=== PATIENT | male | born 1955 | race Two or more races ===

== ENCOUNTER 2017-03-22 02:33 | Emergency (ER) | payer BC, OTHER ==
[~2017-03-22] VITALS: Ht 170.2 cm; Wt 65.3 kg
--- NOTE | 2017-03-22 02:51 | NUR ---
PT CMAE FROM HOME C/O L FLANK PAIN X 2 WEEKS, STARTED THROWING UP TONIGHT, NO BLOOD NOTED, A/O X 4, BREATHING EVEN/UNLABOTEDM ABD, SOFT/NON DISTENDED, TENDER TO TOUCH, RATES PAIN 8/10 RADIATING TO BACK.
[2017-03-22] MEDS ORDERED: IV NS 0.9% 1,000 ML BAG IV ONE (03:00)
[2017-03-22] MEDS ORDERED: HYDROCODONE/APAP 10/325MG 1 EA TABLET PO ONE (04:00)
[2017-03-22 04:05] LABS: APPEARANCE,URINE CLEAR (CLEAR); BILIRUBIN,URINE NEGATIVE (NEGATIVE); BLOOD, URINE 3+ Ery/uL (NEGATIVE); COLOR,URINE YELLOW (YELLOW); KETONES,URINE NEGATIVE (NEGATIVE); LEUKOCYTE ESTERASE ,URINE NEGATIVE (NEGATIVE); NITRITE, URINE NEGATIVE (NEGATIVE); PROTEIN,URINE NEGATIVE (NEGATIVE); UGLUCOSE NEGATIVE (NEGATIVE); UROBILINOGEN,URINE 0.2 EU/dL (0.2)
[2017-03-22 04:16] LABS: BACTERIA,URINE None seen /HPF (None Seen); SQUAMOUS EPITHELIAL CELL,UR Rare /HPF (None Seen); WBC,URINE 0-2 /HPF (0-3)
[2017-03-22] MEDS ORDERED: ONDANSETRON HCL/PF - ER 4 MG/2 ML VIAL IV ONE (05:30)
[2017-03-22] MEDS ORDERED: HYDROMORPHONE 1 MG/1 ML DISP.SYRIN IV ONE (05:30)
[2017-03-22] MEDS ORDERED: ONDANSETRON HCL/PF 4 MG/2 ML VIAL ONE (05:51)
[2017-03-22] MEDS ORDERED: HYDROMORPHONE 1 MG/1 ML DISP.SYRIN ONE (05:52)
[2017-03-22] MEDS ORDERED: KETOROLAC TROMETHAMINE INJ 30 MG/ML VIAL IV ONE (06:00)
[2017-03-22 07:25] LABS: BASOPHILS % (AUTO) 0.3 % (0.0-2.0); EOSINOPHILS % (AUTO) 0.4 % (0.0-6.0); HEMATOCRIT 48 % (39-51); HEMOGLOBIN 16.7 g/dL (13.5-17.5); LYMPHOCYTES % (AUTO) 9.1 % (20.0-44.0); MEAN CORPUSCULAR HEMOGLOBIN 30 PG (26.0-33.0); MEAN CORPUSCULAR HGB CONC 35 g/dl (31.0-36.0); MEAN CORPUSCULAR VOLUME 87 fL (80-96); MONOCYTES # (AUTO) 0.6 /CMM (0.1-1.30); NEUTROPHILS # (AUTO) 9.5 /CMM (1.8-8.9); NEUTROPHILS % (AUTO) 85.2 % (43.0-81.0); PLATELET COUNT (AUTO) 118 /CMM (150-450); RDW COEFFICIENT OF VARIATION 12.4 (11.5-15.0); RED BLOOD CELL COUNT(AUTO) 5.53 MIL/uL (4.5-6.0); WHITE BLOOD COUNT (AUTO) 11.2 K/uL (4.3-11.0)
[2017-03-22 07:37] LABS: CALCIUM, SERUM 9.3 mg/dL (8.5-10.1); CREATININE 0.9 mg/dL (0.6-1.3); POTASSIUM 4.8 mmol/L (3.5-5.1)
[2017-03-22 07:43] LABS: ALBUMIN 4.2 g/dL (3.4-5.0); BILIRUBIN,TOTAL 0.8 mg/dL (0.2-1.0); TOTAL PROTEIN, SERUM 8.3 g/dL (6.4-8.2)
--- NOTE | 2017-03-22 09:13 | NUR ---
CALLED HCP AND SPOKE WITH TYLER, [employer] MACHINE SETTER AND FAXED THE FACESHEET TO .
--- NOTE | 2017-03-22 09:25 | NUR ---
HCP PHYSICIAN IS TALKING TO DR WHITE. ACCEPTED THE PATIENT. WAITING FOR TRANSFER INFO.
--- NOTE | 2017-03-22 12:44 | NUR ---
CALLED HCP AT [phone], SPOKE WITH MC, SHE SAID SHE IS WAITING FOR A BED AT [facility] AND SHE WILL CALL ME BACK WHEN SHE HAS A BED.
--- NOTE | 2017-03-22 14:09 | NUR ---
CALLED HCP, SPOKE WITH JACK, SHE SAID [facility] IS NOT AVAILABLE BUT SHE WILL HAVE HER CALL ME BACK
--- NOTE | 2017-03-22 14:44 | NUR ---
RECEIVED CALL FROM MC AT [facility], SHE SAID THEY ARE JUST WAITING FOR AN ACCEPTING UROLOGIST AT [facility].
--- NOTE | 2017-03-22 14:52 | NUR ---
CALLED FOR FOOD TRAY
--- NOTE | 2017-03-22 15:15 | NUR ---
DR WHIET AT BEDSIDE TALKING TO PT REGARDING PLAN OF CARE.
--- NOTE | 2017-03-22 15:24 | NUR ---
Patient discharged to home in stable condition. Written and verbal after care instructions given. Patient verbalizes understanding of instruction.IV removed. Catheter intact and site benign. Pressure and 4x4 applied to site. No bleeding noted.
[2017-03-22 15:25] VITALS: BP 152/99
== END 2017-03-22 15:26 | disposition home or self-care (01) ==
LOC: ER 02:34 → UNDOADMIN 08:37 → MEDSG2 08:37 → ER 15:26
DX: N13.2 Hydronephrosis with renal and ureteral calculous obstruction (principal); R31.29 Other microscopic hematuria; N28.89 Other specified disorders of kidney and ureter; I10 Essential (primary) hypertension
CPT/HCPCS: 36415; 74176; 80048; 80076; 81001; 83690; 85025; 96360; 99285; A4606; Z7610; 81000-TC; J1170; J2405